=== PATIENT | female | born 1985 ===

== ENCOUNTER 2019-06-18 05:12 | Emergency (ER) | payer MEDICAID ==
[~2019-06-18] VITALS: Ht 170.2 cm; Wt 66.8 kg
--- NOTE | 2019-06-18 05:18 | NUR ---
PT. IN BATHROOM WHEN CALLED FOR TRIAGE; FAMILY IN LOBBY.
--- NOTE | 2019-06-18 05:43 | NUR ---
RN to bedside. Patient changed into gown and resting comfortably. provided with warm blanket and glycerin swabs. Awaiting assessment and orders from provider.
== END 2019-06-18 06:12 | disposition home or self-care (01) ==
LOC: ED 05:42 → MERGE 05:42 → ED 06:12
DX: T23.261A Burn of second degree of back of right hand, initial encounter (principal); T24.222A Burn of second degree of left knee, initial encounter; T31.0 Burns involving less than 10% of body surface; R00.0 Tachycardia, unspecified; X08.8XXA Exposure to other specified smoke, fire and flames, initial encounter; Y93.89 Activity, other specified; Y92.89 Other specified places as the place of occurrence of the external cause; Y99.8 Other external cause status
CPT/HCPCS: 99283; 99284

== ENCOUNTER 2019-07-04 06:14 | Emergency (ER) | payer MEDICAID ==
[~2019-07-04] VITALS: Ht 170.2 cm; Wt 67.4 kg
[2019-07-04 06:18] VITALS: BP 111/50
== END 2019-07-04 07:07 | disposition left against medical advice (07) ==
LOC: ED 07:00
DX: T19.2XXA Foreign body in vulva and vagina, initial encounter (principal); R10.2 Pelvic and perineal pain; X58.XXXA Exposure to other specified factors, initial encounter; Y93.89 Activity, other specified; Y92.89 Other specified places as the place of occurrence of the external cause; Y99.8 Other external cause status
CPT/HCPCS: 99281

== ENCOUNTER 2019-11-01 02:29 | Inpatient (IN) | payer MEDICAID ==
[~2019-11-01] VITALS: Ht 172.7 cm; Wt 80.0 kg
[2019-11-01] MEDS ORDERED: OXYTOCIN 30U/ 0.9% NaCL 500ML 500 ML IV PRN ×3 (02:50→14:39)
[2019-11-01] MEDS ORDERED: D5%-LACTATED RINGERS 1,000 ML IV SCH (02:50)
[2019-11-01] MEDS ORDERED: OXYTOCIN 30U/ 0.9% NaCL 500ML 500 ML IV ONE ×2 (02:50→14:39)
[2019-11-01] MEDS ORDERED: CALCIUM CARBONATE 500 MG TAB.CHEW PO PRN (03:00)
[2019-11-01] MEDS ORDERED: FENTANYL PF 100 MCG/2ML IVPush PRN ×2 (03:00→15:00)
[2019-11-01] MEDS ORDERED: RHOGAM FROM BLOOD BANK 1 NOTE EA IM/IV PRN (03:00)
[2019-11-01] MEDS ORDERED: METOCLOPRAMIDE 5 MG/ML, 2ML IVPush PRN ×2 (03:00→15:00)
[2019-11-01] MEDS ORDERED: MISOPROSTOL 200 MCG TABLET VG SCH (03:00)
[2019-11-01] MEDS ORDERED: ONDANSETRON 2MG/ML, 2ML IVPush PRN ×2 (03:00→15:00)
[2019-11-01] MEDS ORDERED: SODIUM CITRATE/CITRIC ACID 30 ML UDC PO PRN (03:00)
[2019-11-01 03:29] LABS: BASOPHILS # (AUTO) 0.04 x10^3/uL (0-0.1); BASOPHILS % (AUTO) 1 % (0-1); EOSINOPHILS # (AUTO) 0.08 x10^3/uL (0-0.4); EOSINOPHILS % (AUTO) 1 % (1-7); LYMPHOCYTES # (AUTO) 1.48 x10^3/uL (1-3.4); LYMPHOCYTES % (AUTO) 20 % (22-44); MD NO; MEAN CORPUSCULAR HGB CONC 34.1 g/dL (32.4-35.8); MEAN PLATELET VOLUME 7.7 fL (7.4-10.4); MONOCYTES # (AUTO) 0.65 x10^3/uL (0.2-0.8); MONOCYTES % (AUTO) 9 % (2-9); NEUTROPHILS # (AUTO) 5.05 x10^3/uL (1.8-6.8); NEUTROPHILS % (AUTO) 69 % (42-75); PLATELET COUNT 224 x10^3/uL (130-400); RED BLOOD COUNT 3.17 x10^6/uL (3.82-5.3); RED CELL DISTRIBUTION WIDTH 13.7 % (9.6-15.2)
[2019-11-01] MEDS ORDERED: MISOPROSTOL 200 MCG TABLET ONE ×2 (03:35→08:55)
[2019-11-01 07:28] VITALS: BP 86/63
[2019-11-01] MEDS ORDERED: FENTANYL PF 100 MCG/2ML ONE ×2 (08:32→13:52)
[2019-11-01] MEDS: FENTANYL PF 100 MCG/2ML IVPush PRN ×2 (08:36→13:55)
[2019-11-01] MEDS ORDERED: LIDOCAINE 1%, 20ML ONE (08:55)
[2019-11-01] MEDS ORDERED: OXYTOCIN 30U/ 0.9% NaCL 500ML 500 ML ONE ×2 (08:55→15:05)
[2019-11-01 09:42] LABS: INTERNATIONAL NORMALIZED RATIO 0.93 (0.93-1.1); PROTHROMBIN TIME 9.8 Seconds (9.6-11.5)
[2019-11-01 09:44] LABS: MICROSCOPIC INDICATED
[2019-11-01 10:07] LABS: AMPHETAMINE SCREEN, URINE Positive (Negative); BARBITURATE SCREEN, URINE Negative (Negative); BENZODIAZEPINE SCREEN, URINE Negative (Negative); CANNABINOID SCREEN, URINE Positive (Negative); COCAINE SCREEN, URINE Negative (Negative); METHADONE SCREEN, URINE Negative (Negative); OPIATE SCREEN, URINE Negative (Negative)
[2019-11-01] MEDS: LACTATED RINGERS 1,000 ML IV SCH ×2 (10:11→11:04)
[2019-11-01] MEDS ORDERED: FENTANYL/BUPIV./NS/PF 250 ML EPIDCONT SCH (10:26)
[2019-11-01] MEDS ORDERED: LACTATED RINGERS 1,000 ML IVBOLUS PRN (10:30)
[2019-11-01] MEDS ORDERED: EPHEDRINE 50 MG/ML, 1ML IVPush PRN (10:30)
[2019-11-01] MEDS ORDERED: FENTANYL PF 500 MCG, BUPIVACAINE/PF 0.5%, 30ML 62.5 ML in SODIUM CHLORIDE 0.9% 177.5 ML EPIDCONT SCH (11:00)
[2019-11-01] MEDS ORDERED: MISOPROSTOL 25 MCG TABLET VG PRN (15:00)
[2019-11-01] MEDS ORDERED: TERBUTALINE 1 MG/ML, 1ML IVPush PRN (15:00)
[2019-11-01] MEDS ORDERED: TERBUTALINE 1 MG/ML, 1ML SQ PRN (15:00)
[2019-11-01 15:10] LABS: BASOPHILS # (AUTO) 0.02 x10^3/uL (0-0.1); BASOPHILS % (AUTO) 0 % (0-1); EOSINOPHILS # (AUTO) 0.03 x10^3/uL (0-0.4); EOSINOPHILS % (AUTO) 0 % (1-7); LYMPHOCYTES % (AUTO) 15 % (22-44); MD NO; MEAN CORPUSCULAR HEMOGLOBIN 31.4 pg (27.0-34.8); MEAN CORPUSCULAR HGB CONC 34.4 g/dL (32.4-35.8); MEAN CORPUSCULAR VOLUME 91.2 fL (80-100); MEAN PLATELET VOLUME 7.8 fL (7.4-10.4); MONOCYTES # (AUTO) 0.57 x10^3/uL (0.2-0.8); MONOCYTES % (AUTO) 6 % (2-9); NEUTROPHILS # (AUTO) 7.68 x10^3/uL (1.8-6.8); NEUTROPHILS % (AUTO) 78 % (42-75); PLATELET COUNT 213 x10^3/uL (130-400); RED BLOOD COUNT 3.02 x10^6/uL (3.82-5.3)
== END 2019-11-01 17:11 | disposition left against medical advice (07) | DRG 560 ==
LOC: LDIP 02:29
PROVIDERS: ADMIT Obstetrics & Gynecology Maternal & Fetal Medicine; ATTEND Obstetrics & Gynecology
PROC: 10E0XZZ Delivery of Products of Conception, External Approach (ICD-10-PCS; principal; 2019-11-01)
DX: O03.9 Complete or unspecified spontaneous abortion without complication (principal); O45.92 Premature separation of placenta, unspecified, second trimester; Z3A.20 20 weeks gestation of pregnancy; O26.892 Other specified pregnancy related conditions, second trimester; D18.1 Lymphangioma, any site
CPT/HCPCS: 36415; 80307; 81001; 85025; 85384; 85610; 85730; 86592; 86850; 86900; 87086; 96374; G0378; J3010; J2590; J7120

== ENCOUNTER 2021-01-06 20:06 | Emergency (ER) | payer MEDICAID ==
[~2021-01-06] VITALS: Ht 170.2 cm; Wt 63.9 kg
[2021-01-06 20:08] VITALS: BP 104/73
--- NOTE | 2021-01-06 22:16 | NUR ---
PT TO ROOM BY WHEEL CHAIR
--- NOTE | 2021-01-06 22:23 | NUR ---
PT PRESENTS TO ED WITH SWELLING IN RIGHT LEG, PT STATES IT ONLY HURTS IF SHE IS MOVING A LOT ON IT. PT RESTING COMFORTABLY ON GURNEY
[2021-01-06] MEDS ORDERED: IBUPROFEN 600 MG TABLET ONE (22:46)
--- NOTE | 2021-01-06 22:56 | NUR ---
PT'S RIGHT KNEE WRAP AND PT MEDICATED. RESTING COMFORTABLY ON GURNEY, DENIES NEEDS AT THIS TIME.
[2021-01-06] MEDS ORDERED: IBUPROFEN 600 MG TABLET PO ONE (23:00)
--- NOTE | 2021-01-06 23:17 | NUR ---
Patient given discharge instructions and they have confirmed that they understand the instructions. Patient ambulatory with steady gait.
== END 2021-01-06 23:19 | disposition home or self-care (01) ==
LOC: ED 23:10
DX: M71.21 Synovial cyst of popliteal space [Baker], right knee (principal); M25.561 Pain in right knee; F17.210 Nicotine dependence, cigarettes, uncomplicated
CPT/HCPCS: 99406